=== PATIENT | male | born 1950 | race African-American/Black ===

== ENCOUNTER 2016-10-25 20:09 | Emergency (ER) | payer OTHER ==
[~2016-10-25] VITALS: Ht 180.3 cm; Wt 85.3 kg
[~2016-10-25 20:09] MED LIST: AMLODIPINE BESY10 MG PO; BENZTROPINE MESY1 MG PO; DEPAKOTE500 MG PO; FLOMAX0.4 MG PO; FOLIC ACID0.4 MG PO; GLIPIZIDE5 MG PO; HYDROCORTISON28.4 GM TP; METOPROLOL TART25 MG PO; SEROQUEL200 MG PO; TRAZODONE HCL50 MG PO
[2016-10-25 21:12] LABS: EOSINOPHIL (%) 0.6 % (0-5); HEMATOCRIT 37.2 % (38.0-50.0); IMMATURE GRANULOCYTE (%) 0.2 % (0.0-0.7); INSTRUMENT ABS NEUTROPHIL CT 3.2 K/uL; LYMPHOCYTE COUNT 1.9 K/uL (1.0-2.8); MCH 31.4 PG (29.0-34.0); MCHC 33.6 G/DL (30.0-36.0); MCV 93.5 FL (86-99); MEAN PLAT.VOLUME 9.4 uM^3 (9.0-12.4); MONOCYTE (%) 16.3 % (3-12); NEUTROPHIL (%) 51.6 % (45-76); NEUTROPHIL COUNT 3.2 K/uL (1.8-6.4); PLATELET COUNT 172 K/uL (156-360); RBC DIS.WIDTH-CV 11.9 % (11.8-14.6); RBC DIS.WIDTH-SD 41.8 % (39-53); RED BLOOD COUNT 3.98 M/uL (4.00-5.50); WHITE BLOOD COUNT 6.2 K/uL (4.1-10.2)
[2016-10-25 21:33] LABS: CHLORIDE 103 mEq/L (99-109); POTASSIUM 4.3 mEq/L (3.7-5.4); SODIUM 136 mEq/L (136-147)
[2016-10-25 21:36] LABS: GLUCOSE 188 mg/dL (70-99)
[2016-10-25 21:37] LABS: ANION GAP 8 MEQ/L (2-14)
[2016-10-25 21:38] LABS: TOTAL BILIRUBIN 0.3 mg/dL (0.0-1.0)
[2016-10-25 21:39] LABS: ALKALINE PHOSPHATASE 60 IU/L (3-129); GFR ESTIMATE (CALCULATED) > 59 mL/min/
[2016-10-25 21:41] LABS: UREA NITROGEN (BUN) 17 mg/dL (9-23)
[2016-10-25 21:43] LABS: TROP-I INTERPRETATION NEGATIVE; TROPONIN-I < 0.01 ng/mL (0.0-0.30)
[2016-10-25 21:44] LABS: CREATINE KINASE 138 IU/L (1-294); TOTAL CK 138 IU/L (1-294)
[2016-10-25 21:51] LABS: CK-MB 1.3 ng/mL (0.0-4.9)
[2016-10-25 22:09] LABS: INFLUENZA A VIRAL ANTIGEN NEGATIVE; INFLUENZA B VIRAL ANTIGEN POSITIVE
[2016-10-25 23:08] LABS: ADD MIUA? NO; BILIRUBIN NEGATIVE; BLOOD NEGATIVE; COLOR COLORLESS ((YELLOW)); GLUCOSE (STRIP) NEGATIVE; KETONES NEGATIVE; LEUKOCYTES NEGATIVE; NITRITE NEGATIVE; PROTEIN (STRIP) NEGATIVE; SPECIFIC GRAVITY 1.003 (1.000-1.030); UCUL ADDED? NO; UROBILINOGEN 0.2 MG/DL (0.2-1.0)
[2016-10-26] MEDS ORDERED: TAMIFLU75 MG PO (01:07)
[2016-10-26 02:14] VITALS: BP 123/83
== END 2016-10-26 02:15 ==
LOC: EME 20:09
PROVIDERS: Emergency Medicine
DX: J10.1 Influenza due to other identified influenza virus with other respiratory manifestations (principal); F31.9 Bipolar disorder, unspecified; F20.9 Schizophrenia, unspecified; E11.9 Type 2 diabetes mellitus without complications; I10 Essential (primary) hypertension; F17.200 Nicotine dependence, unspecified, uncomplicated
CPT/HCPCS: 70450; 71020; 80053; 81003; 82550; 82553; 83605; 83880; 84484; 85025; 87040; 87502; 93005; 99281; 99285; J1630; J7030

== ENCOUNTER 2016-12-07 16:53 | Emergency (ER) | payer OTHER ==
[~2016-12-07] VITALS: Ht 182.9 cm; Wt 77.0 kg
[~2016-12-07 16:53] MED LIST changes: +TAMIFLU75 MG PO
[2016-12-07 18:38] LABS: EOSINOPHIL (%) 0.8 % (0-5); EOSINOPHIL COUNT 0.1 K/uL (0-0.3); IMMATURE GRANULOCYTE (%) 0.2 % (0.0-0.7); LYMPHOCYTE COUNT 2.2 K/uL (1.0-2.8); MCH 30.2 PG (29.0-34.0); MCHC 33.6 G/DL (30.0-36.0); MCV 89.7 FL (86-99); MEAN PLAT.VOLUME 9.3 uM^3 (9.0-12.4); MONOCYTE (%) 11.3 % (3-12); MONOCYTE COUNT 0.7 K/uL (0-0.8); NEUTROPHIL (%) 51.2 % (45-76); PLATELET COUNT 201 K/uL (156-360); RBC DIS.WIDTH-CV 13.1 % (11.8-14.6); RBC DIS.WIDTH-SD 42.9 % (39-53); RED BLOOD COUNT 3.68 M/uL (4.00-5.50); WHITE BLOOD COUNT 5.9 K/uL (4.1-10.2)
[2016-12-07 18:57] LABS: CHLORIDE 109 mEq/L (99-109); POTASSIUM 4.1 mEq/L (3.7-5.4); SODIUM 140 mEq/L (136-147)
[2016-12-07 19:00] LABS: GLUCOSE 232 mg/dL (70-99)
[2016-12-07 19:01] LABS: ANION GAP 6 MEQ/L (2-14)
[2016-12-07 19:02] LABS: TOTAL BILIRUBIN 0.4 mg/dL (0.0-1.0)
[2016-12-07 19:03] LABS: ALKALINE PHOSPHATASE 52 IU/L (3-129); GFR ESTIMATE (CALCULATED) > 59 mL/min/
[2016-12-07 19:04] LABS: UREA NITROGEN (BUN) 20 mg/dL (9-23)
[2016-12-07 22:49] VITALS: BP 139/96
== END 2016-12-07 22:51 ==
LOC: EME 16:53
PROVIDERS: Emergency Medicine
DX: F20.9 Schizophrenia, unspecified (principal); Z91.19 Patient's noncompliance with other medical treatment and regimen; I10 Essential (primary) hypertension; F31.9 Bipolar disorder, unspecified; Z88.6 Allergy status to analgesic agent; F17.200 Nicotine dependence, unspecified, uncomplicated
CPT/HCPCS: 80053; 81003; 85025; 99281; 99284; J1630; J2060

== ENCOUNTER 2016-12-13 02:08 | Emergency (ER) | payer OTHER ==
[~2016-12-13] VITALS: Ht 182.9 cm; Wt 70.0 kg
[2016-12-13 02:55] LABS: EOSINOPHIL (%) 1.2 % (0-5); EOSINOPHIL COUNT 0.1 K/uL (0-0.3); HEMATOCRIT 37.8 % (38.0-50.0); IMMATURE GRANULOCYTE (%) 0.2 % (0.0-0.7); INSTRUMENT ABS NEUTROPHIL CT 3.8 K/uL; LYMPHOCYTE COUNT 3.5 K/uL (1.0-2.8); MCH 29.9 PG (29.0-34.0); MCHC 34.1 G/DL (30.0-36.0); MCV 87.7 FL (86-99); MEAN PLAT.VOLUME 9.4 uM^3 (9.0-12.4); MONOCYTE (%) 12.2 % (3-12); NEUTROPHIL (%) 45.3 % (45-76); NEUTROPHIL COUNT 3.8 K/uL (1.8-6.4); PLATELET COUNT 221 K/uL (156-360); RBC DIS.WIDTH-CV 12.5 % (11.8-14.6); RBC DIS.WIDTH-SD 40.3 % (39-53); RED BLOOD COUNT 4.31 M/uL (4.00-5.50); WHITE BLOOD COUNT 8.4 K/uL (4.1-10.2)
[2016-12-13 03:03] LABS: INTER. NORMALIZED RATIO 1.1; PTT 28.7 (25-32)
[2016-12-13 03:06] LABS: CHLORIDE 106 mEq/L (99-109); POTASSIUM 4.3 mEq/L (3.7-5.4); SODIUM 140 mEq/L (136-147)
[2016-12-13 03:07] LABS: GLUCOSE 136 mg/dL (70-99)
[2016-12-13 03:09] LABS: ANION GAP 8 MEQ/L (2-14)
[2016-12-13 03:11] LABS: GFR ESTIMATE (CALCULATED) > 59 mL/min/
[2016-12-13 03:12] LABS: UREA NITROGEN (BUN) 14 mg/dL (9-23)
[2016-12-13 03:13] LABS: TROP-I INTERPRETATION NEGATIVE; TROPONIN-I < 0.01 ng/mL (0.0-0.30)
[2016-12-13 04:38] LABS: HDL CHOLESTEROL 63 MG/DL (Desirable>=40); LDL CHOLESTEROL 77 mg/dL (Desirable<100); NON-HDL CHOLESTEROL 91 mg/dL (Desirable<160); TOTAL CHOLESTEROL 154 mg/dL (Desirable<200); TRIGLYCERIDES 69 MG/DL (Normal: <150)
[2016-12-13 07:17] LABS: Estimated Average Glucose 163 mg/dL (70-123); HEMOGLOBIN A1c (GLYCOHEMOGLOB) 7.3 % HGB (Below 5.7)
[2016-12-13] MEDS ORDERED: NICODERM CQ1 EAC2 TD (10:18)
[2016-12-13 10:41] VITALS: BP 159/110
== END 2016-12-13 12:11 ==
LOC: EME → EDBD 02:08 → EME 12:11
PROVIDERS: Emergency Medicine
DX: F91.8 Other conduct disorders (principal); F20.0 Paranoid schizophrenia; F31.9 Bipolar disorder, unspecified; E11.9 Type 2 diabetes mellitus without complications; I10 Essential (primary) hypertension; F17.200 Nicotine dependence, unspecified, uncomplicated; Z91.128 Patient's intentional underdosing of medication regimen for other reason
CPT/HCPCS: 70450; 71010; 80048; 80061; 81003; 83036; 84484; 85025; 85610; 85730; 90839; 93005; 99281; 99285; J1630; J2060